=== PATIENT | male | born 1980 | race Caucasian/White ===

== ENCOUNTER 2017-09-06 12:35 | Inpatient (IN) | payer OTHER ==
[2017-09-06 13:36] VITALS: BMI 28.7
--- NOTE | 2017-09-06 17:32 | HP ---
Admission [facility] Chief Complaint: "I'm here because of my history of drug use and because I am mandated to by drug court." Patient is here for Rehab for Marijuana and Opiates. Allergies/Adverse Reactions: Allergies Allergy/AdvReac Type Severity Reaction Status Date / Time No Known Allergies Allergy Verified 09/06/17 17:15 History of Present Illness: Patient is a 36 YO male here for Rehab for Heroin and Marijuana. Patient had a Detox admission at [facility] in 2009. Patient is a client at [facility] (Daily Dose: 130 mg; Last Day medicated: today, 09/06/2017). Pending Verification. Longest Period of non-drug use in recent years: 2 years ( 2007 - 2009). Exam Limitations: No Limitations - Ebola screening Have you traveled outside of the country in the last 21 days: No Have you had contact with anyone from an Ebola affected area: No Have you been sick,other than usual withdrawal symptoms: No Do you have a fever: No - Review of Systems Constitutional: Loss of Appetite, Malaise EENT: reports: No Symptoms Reported Respiratory: reports: No Symptoms reported Cardiac: reports: No Symptoms Reported GI: reports: Constipated, Indigestion (Heartburn.), Abdominal cramping : reports: No Symptoms Reported Musculoskeletal: reports: No Symptoms Reported Integumentary: reports: No Symptoms Reported Neuro: reports: Tremors Endocrine: reports: No Symptoms Reported Hematology: reports: No Symptoms Reported Psychiatric: reports: No Sypmtoms Reported, Judgement Intact, Mood/Affect Appropiate, Orientated x3, Anxious Other Systems: Reviewed and Negative Patient History - Patient Medical History Hx Anemia: No Hx Asthma: No Hx Chronic Obstructive Pulmonary Disease (COPD): No Hx Cancer: No Hx Cardiac Disorders: No Hx Congestive Heart Failure: No Hx Hypertension: No Hx Hypercholesterolemia: No Hx Pacemaker: No HX Cerebrovascular Accident: No Hx Seizures: No Hx Dementia: No Hx Diabetes: No Hx Gastrointestinal Disorders: Yes (GERD, Takes Nexium.) Hx Liver Disease: No Hx Genitourinary Disorders: No Hx Sexually Transmitted Disorders: No Hx Renal Disease (ESRD): No Hx Thyroid Disease: No Hx Human Immunodeficiency Virus (HIV): No (Last Tested: 08/2017: NEGATIVE.) Hx Hepatitis C: No (Last Tested: 08/2017: NEGATIVE.) Hx Depression: No (Anxiety.) Hx Suicide Attempt: No (PAITENT DENIES CURRENT SI / HI.) Hx Bipolar Disorder: No Hx Schizophrenia: No Other Medical History: DENIES. - Patient Surgical History Past Surgical History: No Hx Neurologic Surgery: No Hx Cataract Extraction: No Hx Cardiac Surgery: No Hx Lung Surgery: No Hx Breast Surgery: No Hx Breast Biopsy: No Hx Abdominal Surgery: No Hx Appendectomy: No Hx Cholecystectomy: No Hx Genitourinary Surgery: No Hx Orthopedic Surgery: No Other Surgical History: DENIES. Anesthesia Reaction: No - PPD History Documented Results: Negative w/o proof Implanted On Prior R Admission?: No PPD to be Administered?: Yes - Reproductive History Patient is a Female of Child Bearing Age (11 -55 yrs old): No (PATIENT IS MALE.) - Smoking Cessation Smoking history: Former smoker Have you smoked in the past 12 months: No Cigars Per Day: 0 Hx Chewing Tobacco Use: No Initiated information on smoking cessation: No - Substance & Tx. History Hx Alcohol Use: No Substance Use Type: Heroin, Marijuana Hx Substance Use Treatment: Yes (Detox at [facility], 2010. MMTP Program at [facility].) - Substances Abused Heroin Route: Injection Frequency: 1-2 times per week Amount used: 3 Bags Age of first use: 27 Date of Last Use: 03/05/17 Marijuana/Hashish Route: Smoking Frequency: 1-2 times per week Amount used: 1 Gram. Age of first use: 18 Date of Last Use: 07/25/17 Family Disease History - Family Disease History Family History: Denies Admission Physical Exam S - Vital Signs Vital Signs: Vital Signs - 24 hr 09/06/17 13:34 Temperature 97.2 F L Pulse Rate 77 Respiratory 20 Rate Blood Pressure 147/111 - Physical General Appearance: Yes: No Apparent Distress, Nourished, Appropriately Dressed , Tremorous, Anxious HEENTM: Yes: Hearing grossly Normal, Normocephalic, Normal Voice, EMANUEL, Pharynx Normal Respiratory: Yes: Chest Non-Tender, Lungs Clear, No Respiratory Distress, No Accessory Muscle Use Neck: Yes: No masses,lesions,Nodules, Supple, Trachea in good position Breast: Yes: Breast Exam Deferred Cardiology: Yes: Regular Rhythm, Regular Rate, S1, S2 Abdominal: Yes: Normal Bowel Sounds, Non Tender, Flat, Soft Genitourinary: Yes: Within Normal Limits Back: Yes: Normal Inspection Musculoskeletal: Yes: full range of Motion, Gait Steady Extremities: Yes: Normal Capillary Refill, Normal Range of Motion, Non-Tender, Tremors Neurological: Yes: Fully Oriented, Alert, Normal Mood/Affect, Normal Response Integumentary: Yes: Normal Color, Dry, Warm Lymphatic: Yes: Within Normal Limits - Diagnostic (1) Uncomplicated opioid dependence Current Visit: Yes Status: Chronic (2) Cannabis dependence, uncomplicated Current Visit: Yes Status: Chronic (3) Methadone maintenance therapy patient Current Visit: Yes Status: Chronic (4) Nicotine dependence Current Visit: Yes Status: Chronic Qualifiers: Nicotine product type: cigarettes Substance use status: uncomplicated Qualified Code(s): F17.210 - Nicotine dependence, cigarettes, uncomplicated (5) GERD (gastroesophageal reflux disease) Current Visit: Yes Status: Chronic Qualifiers: Esophagitis presence: esophagitis presence not specified Qualified Code(s) : K21.9 - Gastro-esophageal reflux disease without esophagitis (6) Anxiety Current Visit: Yes Status: Chronic Cleared for Admission [facility] - Detox or Rehab Claeared for Rehab Admission: Yes [facility] Breath Alcohol Content Breath Alcohol Content: 0 Urine Drug Screen - Results Drug Screen Negative: No Urine Drug Screen Results: THC-Marijuana, MTD-Methadone Inpatient Rehab Admission - Initial Determination Are CD services needed?: Yes Free of communicable disease: Yes Not in need of hospitalization: Yes - Rehab Admission Criteria Previous failed treatment: Yes Comorbidities: Yes Patient is meeting Inpatient Rehab admission criteria:: Yes
[2017-09-06] MEDS ORDERED: MAGNESIUM CITRATE 300 ML BOTTLE PO PRN (17:57)
[2017-09-06] MEDS ORDERED: MAGNESIUM HYDROX 2400MG/30ML ORAL SUSPENSION 30 ML CUP PO PRN (17:57)
[2017-09-06] MEDS ORDERED: MENTHOL/PHENOL 1 EACH UD MM PRN (17:57)
[2017-09-06] MEDS ORDERED: ACETAMINOPHEN 325 MG TABLET (FP) PO PRN (17:57)
[2017-09-06] MEDS ORDERED: guaiFENesin/D-METHORPHAN HB 10 ML UNIT-DOSE CUPS PO PRN (17:57)
[2017-09-06] MEDS: MELATONIN 5 MG TABLETS PO PRN (21:11)
[2017-09-06] MEDS: PANTOPRAZOLE 20 MG TABLET (FP) PO SCH (21:11)
[2017-09-06] MEDS: THIAMINE HCL 100 MG TABLET (FP) PO SCH (21:15)
[2017-09-06] MEDS: OXYMETAZOLINE 0.05% NASAL SOLUTION 15 ML BOTTLE NS SCH (22:29)
[2017-09-06 23:12] LABS: URINE APPEARANCE CLEAR; URINE BILIRUBIN NEGATIVE (<2.0 mg/dL); URINE BLOOD NEGATIVE (NEGATIVE); URINE COLOR YELLOW; URINE GLUCOSE (UA) NEGATIVE (NEGATIVE); URINE KETONE NEGATIVE (NEGATIVE); URINE LEUK ESTERASE TRACE (NEGATIVE); URINE NITRITE NEGATIVE (NEGATIVE); URINE PROTEIN NEGATIVE (NEGATIVE); URINE UROBILINOGEN NEGATIVE mg/dL (0.2-1.0)
[2017-09-06 23:18] LABS: URINE MUCUS RARE
[2017-09-07] MEDS: P-EPHED 60MG/TRIPROLIDI 2.5MG TABLET PO PRN (06:59)
[2017-09-07] MEDS: OXYMETAZOLINE 0.05% NASAL SOLUTION 15 ML BOTTLE NS SCH ×2 (09:22→21:12)
[2017-09-07] MEDS: PRENATAL VITAMINS W/ FOLIC ACID TABLET (FP) PO SCH (09:22)
[2017-09-07] MEDS: PANTOPRAZOLE 20 MG TABLET (FP) PO SCH (09:22)
[2017-09-07] MEDS ORDERED: METHADONE HCL 10 MG TABLET PO SCH (10:45)
[2017-09-07] MEDS ORDERED: METHADONE 120 MG, METHADONE 10 MG PO ONE (11:15)
[2017-09-07 11:22] LABS: HEMATOCRIT 42.6 % (35.4-49); HEMOGLOBIN 14.3 GM/dL (11.7-16.9); MCHC 33.6 g/dl (32.0-35.9); MEAN CELL VOLUME 86.5 fl (80-96); MEAN PLT VOLUME 8.6 fl (7.5-11.1); PLATELET COUNT 275 K/MM3 (134-434); RBC 4.93 M/mm3 (4.00-5.60); WHITE BLOOD COUNT 8.1 K/mm3 (4.0-10.0)
[2017-09-07] MEDS ORDERED: METHADONE HCL 40 MG DISPERSABLE TABLET ONE (11:25)
[2017-09-07] MEDS ORDERED: METHADONE HCL 10 MG TABLET ONE (11:25)
[2017-09-07 11:32] LABS: ALBUMIN 3.8 g/dl (3.4-5.0); ALK PHOS 99 U/L (45-117); ANION GAP 7 (8-16); BILIRUBIN,TOTAL 0.2 mg/dL (0.2-1.0); BLOOD UREA NITROGEN 12 mg/dL (7-18); CALCIUM 9.2 mg/dL (8.5-10.1); CHLORIDE 103 mmol/L (98-107); CO2 27 mmol/L (21-32); CREATININE 0.8 mg/dL (0.7-1.3); GLUCOSE,RANDOM 83 mg/dL (74-106); POTASSIUM 4.2 mmol/L (3.5-5.1); SGOT/AST 25 U/L (15-37); SGPT/ALT 40 U/L (12-78); SODIUM 137 mmol/L (136-145); TOT PROT 7.3 g/dl (6.4-8.2)
--- NOTE | 2017-09-07 18:23 | EKG ---
Test Reason : Blood Pressure : / mmHG Vent. Rate : 067 BPM Atrial Rate : 067 BPM P-R Int : 174 ms QRS Dur : 092 ms QT Int : 420 ms P-R-T Axes : 044 063 033 degrees QTc Int : 443 ms NORMAL SINUS RHYTHM LEFT VENTRICULAR HYPERTROPHY NONSPECIFIC ST ABNORMALITY ABNORMAL ECG Confirmed by MD GRANT, CITLALI ([id number]) on 09/07/2017 6:23:18 PM Referred By: Confirmed By:CITLALI BURNS MD
[2017-09-07] MEDS: IBUPROFEN 400 MG TABLET (FP) PO PRN (20:09)
[2017-09-07] MEDS: MELATONIN 5 MG TABLETS PO PRN (21:12)
[2017-09-07] MEDS: THIAMINE HCL 100 MG TABLET (FP) PO SCH (21:12)
[2017-09-08] MEDS ORDERED: METHADONE HCL 10 MG TABLET ONE (06:02)
[2017-09-08] MEDS: METHADONE 120 MG, METHADONE 10 MG PO SCH (06:02)
[2017-09-08] MEDS ORDERED: METHADONE HCL 40 MG DISPERSABLE TABLET ONE (06:02)
[2017-09-08] MEDS: PRENATAL VITAMINS W/ FOLIC ACID TABLET (FP) PO SCH (09:37)
[2017-09-08] MEDS: PANTOPRAZOLE 20 MG TABLET (FP) PO SCH (09:37)
[2017-09-08] MEDS: OXYMETAZOLINE 0.05% NASAL SOLUTION 15 ML BOTTLE NS SCH ×2 (09:38→21:12)
[2017-09-08] MEDS: IBUPROFEN 400 MG TABLET (FP) PO PRN (11:25)
--- NOTE | 2017-09-08 15:52 | HP ---
Psychiatrist Admission - Data Date of interview: 09/08/17 Admission source: [facility] drug court Identifying data: This is the first [facility] admission for this 36 years old single male, unemployed, domiciled living wiyh his father Medical History: Significant for GERD. Patient attends [facility] MMTP and he is on methadone 130 mg/day. Psychiatric History: Denies history of previous psychiatric treatment. However reports seeing Ms Marks, a private psychologist on 08/15/17 and was diagnosed with General Anxiety Disorder.Apparently, Ms Marks gave patient the names of several psychiatrist to contact for medication evaluation and treatment as indicated. Patient told engineering writer sine he is mandated by drug court to attend inpatient rehab, he could not find a psychiatrist for that evaluation. Physical/Sexual Abuse/Trauma History: Denies history of emotional, physical or sexual abuse as well as DV relationship Additional Comment: Reports history of 6-7 previous arrests. Denies being on probation currently. However reports being sentenced to drug court Vital Signs: Vital Signs - 24 hr 09/08/17 09/08/17 09/08/17 00:30 03:30 07:02 Temperature 97.9 F Pulse Rate 63 Respiratory 18 18 18 Rate Blood Pressure 140/89 Allergies/Adverse Reactions: Allergies Allergy/AdvReac Type Severity Reaction Status Date / Time No Known Allergies Allergy Verified 09/06/17 17:15 Date of last physical exam: 09/06/17 Concur with the findings of this exam: Yes - Substance Abuse/Tx History Hx Alcohol Use: No Hx Substance Use: Yes Substance Use Type: Heroin (Started using heroin at age 27, consumes 3 bags 1-2 times weekly. Last used on 03/05/17), Marijuana (Started using marijuana at age 18, consumes one gram 1-2 times weekly) Hx Substance Use Treatment: Yes (one previous inpt detox @ [facility]. 3 inpt rehab @ [facility]) Mental Status Exam - Mental Status Exam Alert and Oriented to: Time, Place, Person Cognitive Function: Fair Patient Appearance: Well Groomed Mood: Anxious Affect: Appropriate Patient Behavior: Cooperative Speech Pattern: Clear Voice Loudness: Normal Thought Process: Intact, Goal Oriented Thought Disorder: Not Present Hallucinations: Denies Suicidal Ideation: Denies Homicidal Ideation: Denies Insight/Judgement: Poor Sleep: Well Appetite: Good Muscle strength/Tone: Normal Gait/Station: Normal Psychiatric Findings - Problem List ([place] 1, 2,3) (1) Cannabis dependence Current Visit: Yes Status: Acute (2) Opioid dependence on agonist therapy Current Visit: Yes Status: Chronic (3) Substance-induced anxiety disorder Current Visit: Yes Status: Acute (4) TEJA (generalized anxiety disorder) Current Visit: Yes Status: Ruled-out (5) GERD (gastroesophageal reflux disease) Current Visit: Yes Status: Chronic Qualifiers: Esophagitis presence: esophagitis presence not specified Qualified Code(s) : K21.9 - Gastro-esophageal reflux disease without esophagitis - Initial Treatment Plan Initial Treatment Plan: 1) Start Vistaril 50 mg po Q 4hrs prn for anxiety. 2) Monitor Progress
[2017-09-08] MEDS ORDERED: hydrOXYzine PAMOATE 50 MG CAPSULE (FP) PO PRN (16:13)
[2017-09-08] MEDS: THIAMINE HCL 100 MG TABLET (FP) PO SCH (21:12)
[2017-09-09] MEDS ORDERED: METHADONE HCL 40 MG DISPERSABLE TABLET ONE (03:32)
[2017-09-09] MEDS ORDERED: METHADONE HCL 10 MG TABLET ONE (03:32)
[2017-09-09] MEDS: METHADONE 120 MG, METHADONE 10 MG PO SCH (06:04)
[2017-09-09] MEDS: PANTOPRAZOLE 20 MG TABLET (FP) PO SCH (09:41)
[2017-09-09] MEDS: OXYMETAZOLINE 0.05% NASAL SOLUTION 15 ML BOTTLE NS SCH ×2 (09:41→21:07)
[2017-09-09] MEDS: PRENATAL VITAMINS W/ FOLIC ACID TABLET (FP) PO SCH (09:41)
[2017-09-09] MEDS: IBUPROFEN 400 MG TABLET (FP) PO PRN (10:50)
[2017-09-09] MEDS: THIAMINE HCL 100 MG TABLET (FP) PO SCH (21:07)
[2017-09-10] MEDS ORDERED: METHADONE HCL 10 MG TABLET ONE (03:04)
[2017-09-10] MEDS ORDERED: METHADONE HCL 40 MG DISPERSABLE TABLET ONE (03:04)
[2017-09-10] MEDS: METHADONE 120 MG, METHADONE 10 MG PO SCH (06:06)
[2017-09-10] MEDS: PRENATAL VITAMINS W/ FOLIC ACID TABLET (FP) PO SCH (09:48)
[2017-09-10] MEDS: PANTOPRAZOLE 20 MG TABLET (FP) PO SCH (09:48)
[2017-09-10] MEDS: OXYMETAZOLINE 0.05% NASAL SOLUTION 15 ML BOTTLE NS SCH (19:09)
[2017-09-10] MEDS: THIAMINE HCL 100 MG TABLET (FP) PO SCH (21:10)
[2017-09-11] MEDS ORDERED: METHADONE HCL 10 MG TABLET ONE (04:37)
[2017-09-11] MEDS ORDERED: METHADONE HCL 40 MG DISPERSABLE TABLET ONE (04:37)
[2017-09-11] MEDS: METHADONE 120 MG, METHADONE 10 MG PO SCH (06:09)
[2017-09-11] MEDS: OXYMETAZOLINE 0.05% NASAL SOLUTION 15 ML BOTTLE NS SCH ×2 (06:10→17:27)
[2017-09-11] MEDS: PRENATAL VITAMINS W/ FOLIC ACID TABLET (FP) PO SCH (09:44)
[2017-09-11] MEDS: PANTOPRAZOLE 20 MG TABLET (FP) PO SCH (09:44)
[2017-09-11] MEDS: IBUPROFEN 400 MG TABLET (FP) PO PRN (17:55)
[2017-09-11] MEDS: THIAMINE HCL 100 MG TABLET (FP) PO SCH (21:06)
[2017-09-12] MEDS ORDERED: METHADONE HCL 10 MG TABLET ONE (04:19)
[2017-09-12] MEDS ORDERED: METHADONE HCL 40 MG DISPERSABLE TABLET ONE (04:19)
[2017-09-12] MEDS: METHADONE 120 MG, METHADONE 10 MG PO SCH (06:03)
[2017-09-12] MEDS: OXYMETAZOLINE 0.05% NASAL SOLUTION 15 ML BOTTLE NS SCH ×2 (06:03→17:03)
[2017-09-12] MEDS: PANTOPRAZOLE 20 MG TABLET (FP) PO SCH (09:45)
[2017-09-12] MEDS: PRENATAL VITAMINS W/ FOLIC ACID TABLET (FP) PO SCH (09:46)
[2017-09-12] MEDS: THIAMINE HCL 100 MG TABLET (FP) PO SCH (22:33)
[2017-09-13] MEDS ORDERED: METHADONE HCL 40 MG DISPERSABLE TABLET ONE (04:12)
[2017-09-13] MEDS ORDERED: METHADONE HCL 10 MG TABLET ONE (04:12)
[2017-09-13] MEDS: OXYMETAZOLINE 0.05% NASAL SOLUTION 15 ML BOTTLE NS SCH ×2 (06:12→18:12)
[2017-09-13] MEDS: METHADONE 120 MG, METHADONE 10 MG PO SCH (06:12)
[2017-09-13] MEDS: PRENATAL VITAMINS W/ FOLIC ACID TABLET (FP) PO SCH (09:35)
[2017-09-13] MEDS: PANTOPRAZOLE 20 MG TABLET (FP) PO SCH (09:35)
[2017-09-13] MEDS: THIAMINE HCL 100 MG TABLET (FP) PO SCH (22:03)
[2017-09-14] MEDS ORDERED: METHADONE HCL 10 MG TABLET ONE (03:14)
[2017-09-14] MEDS ORDERED: METHADONE HCL 40 MG DISPERSABLE TABLET ONE (03:14)
[2017-09-14] MEDS: METHADONE 120 MG, METHADONE 10 MG PO SCH (06:13)
[2017-09-14] MEDS: OXYMETAZOLINE 0.05% NASAL SOLUTION 15 ML BOTTLE NS SCH ×2 (06:13→18:08)
[2017-09-14] MEDS: PRENATAL VITAMINS W/ FOLIC ACID TABLET (FP) PO SCH (09:28)
[2017-09-14] MEDS: PANTOPRAZOLE 20 MG TABLET (FP) PO SCH (09:28)
[2017-09-14] MEDS ORDERED: PT OWN MED DRAWER 7, Y5N ONE ×2 (18:08→21:12)
[2017-09-14] MEDS: THIAMINE HCL 100 MG TABLET (FP) PO SCH (21:10)
[2017-09-15] MEDS ORDERED: METHADONE HCL 10 MG TABLET ONE (02:46)
[2017-09-15] MEDS ORDERED: METHADONE HCL 40 MG DISPERSABLE TABLET ONE (02:47)
[2017-09-15] MEDS: OXYMETAZOLINE 0.05% NASAL SOLUTION 15 ML BOTTLE NS SCH ×2 (06:06→18:00)
[2017-09-15] MEDS: METHADONE 120 MG, METHADONE 10 MG PO SCH (06:06)
[2017-09-15] MEDS: PRENATAL VITAMINS W/ FOLIC ACID TABLET (FP) PO SCH (09:46)
[2017-09-15] MEDS: PANTOPRAZOLE 20 MG TABLET (FP) PO SCH (09:46)
[2017-09-15] MEDS: LOPERAMIDE HCL 2 MG CAPSULE PO PRN ×2 (12:39→19:58)
[2017-09-15] MEDS: P-EPHED 60MG/TRIPROLIDI 2.5MG TABLET PO PRN (15:17)
[2017-09-15] MEDS ORDERED: PT OWN MED DRAWER 7, Y5N ONE ×2 (19:22→22:28)
[2017-09-15] MEDS: THIAMINE HCL 100 MG TABLET (FP) PO SCH (21:38)
[2017-09-15] MEDS ORDERED: LOPERAMIDE HCL 2 MG CAPSULE PO ONE (22:00)
[2017-09-16] MEDS ORDERED: METHADONE HCL 40 MG DISPERSABLE TABLET ONE (04:20)
[2017-09-16] MEDS ORDERED: METHADONE HCL 10 MG TABLET ONE (04:20)
[2017-09-16] MEDS: OXYMETAZOLINE 0.05% NASAL SOLUTION 15 ML BOTTLE NS SCH ×2 (06:09→18:00)
[2017-09-16] MEDS: METHADONE 120 MG, METHADONE 10 MG PO SCH (06:10)
[2017-09-16] MEDS: LOPERAMIDE HCL 2 MG CAPSULE PO PRN (06:13)
[2017-09-16] MEDS ORDERED: PT OWN MED DRAWER 7, Y5N ONE ×2 (08:54→22:11)
[2017-09-16] MEDS: PANTOPRAZOLE 20 MG TABLET (FP) PO SCH (09:40)
[2017-09-16] MEDS: PRENATAL VITAMINS W/ FOLIC ACID TABLET (FP) PO SCH (09:40)
[2017-09-16] MEDS ORDERED: ONDANSETRON *ODT* 4 MG TABLET SL PRN (19:46)
--- NOTE | 2017-09-16 19:48 | PN ---
[facility] Progress Note Note: Patient c/o of frequent nausea. Vital Signs Temperature 97.5 F L 09/16/17 06:39 Pulse Rate 79 09/16/17 06:39 Respiratory Rate 18 09/16/17 06:39 Blood Pressure 124/94 09/16/17 06:39 O2 Sat by Pulse Oximetry (%) Laboratory Last Values WBC 8.1 K/mm3 (4.0-10.0) 09/07/17 08:00 RBC 4.93 M/mm3 (4.00-5.60) 09/07/17 08:00 Hgb 14.3 GM/dL (11.7-16.9) 09/07/17 08:00 Hct 42.6 % (35.4-49) 09/07/17 08:00 MCV 86.5 fl (80-96) 09/07/17 08:00 MCH 29.0 pg (25.7-33.7) 09/07/17 08:00 MCHC 33.6 g/dl (32.0-35.9) 09/07/17 08:00 RDW 14.0 % (11.9-15.9) 09/07/17 08:00 Plt Count 275 K/MM3 (134-434) 09/07/17 08:00 MPV 8.6 fl (7.5-11.1) 09/07/17 08:00 Sodium 137 mmol/L (136-145) 09/07/17 08:00 Potassium 4.2 mmol/L (3.5-5.1) 09/07/17 08:00 Chloride 103 mmol/L (98-107) 09/07/17 08:00 Carbon Dioxide 27 mmol/L (21-32) 09/07/17 08:00 Anion Gap 7 (8-16) L 09/07/17 08:00 BUN 12 mg/dL (7-18) 09/07/17 08:00 Creatinine 0.8 mg/dL (0.7-1.3) 09/07/17 08:00 Creat Clearance w eGFR > 60 (>60) 09/07/17 08:00 Random Glucose 83 mg/dL (74-106) 09/07/17 08:00 Calcium 9.2 mg/dL (8.5-10.1) 09/07/17 08:00 Total Bilirubin 0.2 mg/dL (0.2-1.0) 09/07/17 08:00 AST 25 U/L (15-37) 09/07/17 08:00 ALT 40 U/L (12-78) 09/07/17 08:00 Alkaline Phosphatase 99 U/L (45-117) 09/07/17 08:00 Total Protein 7.3 g/dl (6.4-8.2) 09/07/17 08:00 Albumin 3.8 g/dl (3.4-5.0) 09/07/17 08:00 Urine Color Yellow 09/06/17 18:51 Urine Appearance Clear 09/06/17 18:51 Urine pH 7.0 (5.0-8.0) 09/06/17 18:51 Ur Specific [place] 1.021 (1.001-1.035) 09/06/17 18:51 Urine Protein Negative (NEGATIVE) 09/06/17 18:51 Urine Glucose (UA) Negative (NEGATIVE) 09/06/17 18:51 Urine Ketones Negative (NEGATIVE) 09/06/17 18:51 Urine Blood Negative (NEGATIVE) 09/06/17 18:51 Urine Nitrite Negative (NEGATIVE) 09/06/17 18:51 Urine Bilirubin Negative (<2.0 mg/dL) 09/06/17 18:51 Urine Urobilinogen Negative mg/dL (0.2-1.0) 09/06/17 18:51 Ur Leukocyte Esterase Trace (NEGATIVE) 09/06/17 18:51 Urine WBC (Auto) 1 /hpf (3-5) 09/06/17 18:51 Urine RBC (Auto) <1 /hpf (0-3) 09/06/17 18:51 Urine Mucus Rare 09/06/17 18:51 RPR Titer Nonreactive (NONREACTIVE) 09/07/17 08:00 Plan: Zofran PRN Increase fluids Continue to monitor
[2017-09-16] MEDS: THIAMINE HCL 100 MG TABLET (FP) PO SCH (21:09)
[2017-09-17] MEDS ORDERED: METHADONE HCL 10 MG TABLET ONE (04:21)
[2017-09-17] MEDS ORDERED: METHADONE HCL 40 MG DISPERSABLE TABLET ONE (04:21)
[2017-09-17] MEDS: LOPERAMIDE HCL 2 MG CAPSULE PO PRN ×2 (06:12→12:57)
[2017-09-17] MEDS: METHADONE 120 MG, METHADONE 10 MG PO SCH (06:13)
[2017-09-17] MEDS: PANTOPRAZOLE 20 MG TABLET (FP) PO SCH (09:39)
[2017-09-17] MEDS: PRENATAL VITAMINS W/ FOLIC ACID TABLET (FP) PO SCH (09:39)
[2017-09-17] MEDS ORDERED: OXYMETAZOLINE 0.05% NASAL SOLUTION 15 ML BOTTLE NS SCH (10:00)
--- NOTE | 2017-09-17 15:01 | PN ---
S Progress Note Note: 36 yo male on methadone maintenance therapy. Reports asymptomatic elevated has been elevated which is related to his anxiety. Sweats Nausea, vomiting, diarrhea. Last BM today, reports currently going to bathroom every two hours. Denies abdominal pain, chest pain or SOB. Vital Signs Temperature 97.5 F L 09/17/17 06:58 Pulse Rate 81 09/17/17 06:58 Respiratory Rate 18 09/17/17 06:58 Blood Pressure 153/91 09/17/17 06:58 O2 Sat by Pulse Oximetry (%) Laboratory Last Values WBC 8.1 K/mm3 (4.0-10.0) 09/07/17 08:00 RBC 4.93 M/mm3 (4.00-5.60) 09/07/17 08:00 Hgb 14.3 GM/dL (11.7-16.9) 09/07/17 08:00 Hct 42.6 % (35.4-49) 09/07/17 08:00 MCV 86.5 fl (80-96) 09/07/17 08:00 MCH 29.0 pg (25.7-33.7) 09/07/17 08:00 MCHC 33.6 g/dl (32.0-35.9) 09/07/17 08:00 RDW 14.0 % (11.9-15.9) 09/07/17 08:00 Plt Count 275 K/MM3 (134-434) 09/07/17 08:00 MPV 8.6 fl (7.5-11.1) 09/07/17 08:00 Sodium 137 mmol/L (136-145) 09/07/17 08:00 Potassium 4.2 mmol/L (3.5-5.1) 09/07/17 08:00 Chloride 103 mmol/L (98-107) 09/07/17 08:00 Carbon Dioxide 27 mmol/L (21-32) 09/07/17 08:00 Anion Gap 7 (8-16) L 09/07/17 08:00 BUN 12 mg/dL (7-18) 09/07/17 08:00 Creatinine 0.8 mg/dL (0.7-1.3) 09/07/17 08:00 Creat Clearance w eGFR > 60 (>60) 09/07/17 08:00 Random Glucose 83 mg/dL (74-106) 09/07/17 08:00 Calcium 9.2 mg/dL (8.5-10.1) 09/07/17 08:00 Total Bilirubin 0.2 mg/dL (0.2-1.0) 09/07/17 08:00 AST 25 U/L (15-37) 09/07/17 08:00 ALT 40 U/L (12-78) 09/07/17 08:00 Alkaline Phosphatase 99 U/L (45-117) 09/07/17 08:00 Total Protein 7.3 g/dl (6.4-8.2) 09/07/17 08:00 Albumin 3.8 g/dl (3.4-5.0) 09/07/17 08:00 Urine Color Yellow 09/06/17 18:51 Urine Appearance Clear 09/06/17 18:51 Urine pH 7.0 (5.0-8.0) 09/06/17 18:51 Ur Specific [place] 1.021 (1.001-1.035) 09/06/17 18:51 Urine Protein Negative (NEGATIVE) 09/06/17 18:51 Urine Glucose (UA) Negative (NEGATIVE) 09/06/17 18:51 Urine Ketones Negative (NEGATIVE) 09/06/17 18:51 Urine Blood Negative (NEGATIVE) 09/06/17 18:51 Urine Nitrite Negative (NEGATIVE) 09/06/17 18:51 Urine Bilirubin Negative (<2.0 mg/dL) 09/06/17 18:51 Urine Urobilinogen Negative mg/dL (0.2-1.0) 09/06/17 18:51 Ur Leukocyte Esterase Trace (NEGATIVE) 09/06/17 18:51 Urine WBC (Auto) 1 /hpf (3-5) 09/06/17 18:51 Urine RBC (Auto) <1 /hpf (0-3) 09/06/17 18:51 Urine Mucus Rare 09/06/17 18:51 RPR Titer Nonreactive (NONREACTIVE) 09/07/17 08:00 A/P Patient AOx3, anxious Normal HR and Rhythm Lungs clear throughout, no adventitious breath sounds BS x 4, no guarding, non-distended Plan: Increase fluids gingerale lomotil once dose continue to monitor
[2017-09-17] MEDS ORDERED: DIPHENOXYLATE 2.5/ATROPINE.025 1 COMBO TABLET PO ONE (15:45)
[2017-09-17] MEDS: THIAMINE HCL 100 MG TABLET (FP) PO SCH (21:11)
[2017-09-17] MEDS ORDERED: PT OWN MED DRAWER 7, Y5N ONE (22:00)
[2017-09-18] MEDS ORDERED: METHADONE HCL 40 MG DISPERSABLE TABLET ONE (04:13)
[2017-09-18] MEDS ORDERED: METHADONE HCL 10 MG TABLET ONE (04:13)
[2017-09-18] MEDS: METHADONE 120 MG, METHADONE 10 MG PO SCH (05:59)
[2017-09-18] MEDS: OXYMETAZOLINE 0.05% NASAL SOLUTION 15 ML BOTTLE NS PRN ×2 (06:02→17:48)
--- NOTE | 2017-09-18 07:48 | PN ---
Psychiatric Progress Note Vital Signs: Vital Signs Period Temp Pulse Resp BP Sys/Holt Pulse Ox Last 24 Hr 97.3 F 75 18-18 137/87 Date of Session: 09/18/17 Chief Complaint:: Discharge Note HPI: Patient addressing Cannabis Dependence comorbid with Opioid Dependence on Agonist Therapy, Substance-Induced Anxiety Disorder ROS: GERD Current Medications: Active Medications Generic Name Dose Route Start Last Admin Trade Name Freq PRN Reason Stop Dose Admin Acetaminophen 650 mg 09/06/17 17:57 Tylenol - PO Q4H PRN FEVER Al Hydroxide/Mg Hydroxide 30 ml 09/06/17 17:57 Mylanta Oral Suspension - PO Q6H PRN DYSPEPSIA Eucalyptus/Menthol/Phenol/Sorbitol 1 each 09/06/17 17:57 Cepastat Lozenge - MM Q4H PRN SORE THROAT Guaifenesin 10 ml 09/06/17 17:57 Robitussin Dm - PO Q6H PRN COUGH Hydroxyzine Pamoate 50 mg 09/08/17 16:13 Vistaril - PO Q4H PRN ANXIETY Ibuprofen 400 mg 09/06/17 17:57 09/11/17 17:55 Motrin - PO 400 mg Q6H PRN Administration Pain level 4-6 Loperamide HCl 4 mg 09/06/17 17:57 09/17/17 12:57 Imodium - PO 4 mg Q6H PRN Administration DIARRHEA Magnesium Citrate 300 ml 09/06/17 17:57 Citroma - PO Q48H PRN CONSTIPATION Magnesium Hydroxide 30 ml 09/06/17 17:57 Milk Of Magnesia - PO DAILY PRN CONSTIPATION Melatonin 5 mg 09/06/17 22:00 09/07/17 21:12 Melatonin PO 5 mg HS PRN Administration INSOMNIA Methadone HCl 120 mg/ 130 mg 09/13/17 06:00 09/18/17 05:59 Methadone HCl 10 mg PO 09/19/17 05:59 130 mg DAILY@0600 RAVEN Administration Ondansetron HCl 8 mg 09/16/17 19:46 09/16/17 20:23 Zofran Odt - SL 8 mg Q8H PRN Administration NAUSEA AND/OR VOMITING Oxymetazoline HCl 2 spray 09/17/17 03:05 09/18/17 06:02 Afrin - NS 2 sprays BID PRN Administration NASAL CONGESTION Pantoprazole Sodium 20 mg 09/06/17 18:15 09/17/17 09:39 Protonix - PO 20 mg DAILY RAVEN Administration Multivit/Folic Acid/Iron 1 tab 09/07/17 10:00 09/17/17 09:39 Vitamins (Sjr) - PO Not Given DAILY RAVEN Pseudoephedrine/Triprolidine 1 combo 09/06/17 17:57 09/15/17 15:17 Actifed - PO 1 combo TID PRN Administration NASAL CONGESTION Thiamine HCl 100 mg 09/06/17 22:00 09/17/17 21:11 Vitamin B1 - PO Not Given HS RAVEN Current Side Effect: No Lab tests ordered: Yes Lab tests reviewed: Yes Provider note:: Patient will complete this program on 09/19/17. He has met his treatment goals and will continue to address his issues in outpatient treatment at [facility]. He responded well to Hydroxyzine Pamoate 50 mg po Q 4hrs prn for anxiety. He is stable for discharge on 09/19/17 Total face to face time:: 35 Mental Status Exam - Mental Status Exam Alert and Oriented to: Time, Place, Person Cognitive Function: Fair Patient Appearance: Well Groomed Mood: Hopeful, Euthymic Affect: Appropriate Patient Behavior: Cooperative Speech Pattern: Clear Voice Loudness: Normal Thought Process: Intact, Goal Oriented Hallucinations: Denies Suicidal Ideation: Denies Homicidal Ideation: Denies Insight/Judgement: Fair Sleep: Fair Appetite: Good Muscle strength/Tone: Normal Gait/Station: Normal Psychiatric Treatment Plan - Problem List (1) Cannabis dependence Current Visit: Yes (2) Opioid dependence on agonist therapy Current Visit: Yes (3) Substance-induced anxiety disorder Current Visit: Yes (4) TEJA (generalized anxiety disorder) Current Visit: Yes (5) GERD (gastroesophageal reflux disease) Current Visit: Yes Qualifiers: Esophagitis presence: esophagitis presence not specified Qualified Code(s) : K21.9 - Gastro-esophageal reflux disease without esophagitis Initial treatment plan: Patient will be discharged tomorrow and referred to [facility] for outpatient treatment
[2017-09-18] MEDS: PANTOPRAZOLE 20 MG TABLET (FP) PO SCH (09:46)
[2017-09-18] MEDS: PRENATAL VITAMINS W/ FOLIC ACID TABLET (FP) PO SCH (09:47)
[2017-09-18] MEDS ORDERED: PT OWN MED DRAWER 7, Y5N ONE (17:48)
[2017-09-18] MEDS: MAG HYDROX/AL HYDROX/SIMETH 30 ML UNIT-DOSE CUP PO PRN (21:29)
[2017-09-18] MEDS: THIAMINE HCL 100 MG TABLET (FP) PO SCH (21:30)
[2017-09-19] MEDS ORDERED: METHADONE HCL 10 MG TABLET PO SCH (06:15)
[2017-09-19] MEDS ORDERED: METHADONE HCL 10 MG TABLET ONE (06:22)
[2017-09-19] MEDS ORDERED: METHADONE HCL 40 MG DISPERSABLE TABLET ONE (06:22)
[2017-09-19] MEDS ORDERED: PT OWN MED DRAWER 7, Y5N ONE ×3 (06:23→21:13)
[2017-09-19] MEDS: OXYMETAZOLINE 0.05% NASAL SOLUTION 15 ML BOTTLE NS PRN ×2 (06:23→21:14)
[2017-09-19] MEDS: METHADONE 120 MG, METHADONE 10 MG PO SCH (06:23)
[2017-09-19] MEDS: PANTOPRAZOLE 20 MG TABLET (FP) PO SCH (09:34)
[2017-09-19] MEDS: PRENATAL VITAMINS W/ FOLIC ACID TABLET (FP) PO SCH (09:34)
[2017-09-19] MEDS: MAG HYDROX/AL HYDROX/SIMETH 30 ML UNIT-DOSE CUP PO PRN ×2 (12:55→21:13)
[2017-09-19] MEDS: THIAMINE HCL 100 MG TABLET (FP) PO SCH (21:14)
[2017-09-20] MEDS ORDERED: METHADONE HCL 10 MG TABLET ONE (04:04)
[2017-09-20] MEDS ORDERED: METHADONE HCL 40 MG DISPERSABLE TABLET ONE (04:05)
[2017-09-20] MEDS: METHADONE 120 MG, METHADONE 10 MG PO SCH (06:07)
[2017-09-20] MEDS: OXYMETAZOLINE 0.05% NASAL SOLUTION 15 ML BOTTLE NS PRN ×2 (06:11→19:37)
[2017-09-20] MEDS: PRENATAL VITAMINS W/ FOLIC ACID TABLET (FP) PO SCH (09:46)
[2017-09-20] MEDS: PANTOPRAZOLE 20 MG TABLET (FP) PO SCH (09:46)
[2017-09-20] MEDS: THIAMINE HCL 100 MG TABLET (FP) PO SCH (21:14)
[2017-09-21] MEDS ORDERED: METHADONE HCL 10 MG TABLET ONE (03:54)
[2017-09-21] MEDS ORDERED: METHADONE HCL 40 MG DISPERSABLE TABLET ONE (03:55)
[2017-09-21] MEDS: METHADONE 120 MG, METHADONE 10 MG PO SCH (06:26)
[2017-09-21] MEDS: OXYMETAZOLINE 0.05% NASAL SOLUTION 15 ML BOTTLE NS PRN ×2 (06:28→19:31)
[2017-09-21] MEDS: PANTOPRAZOLE 20 MG TABLET (FP) PO SCH (09:33)
[2017-09-21] MEDS: PRENATAL VITAMINS W/ FOLIC ACID TABLET (FP) PO SCH (09:33)
[2017-09-21] MEDS: THIAMINE HCL 100 MG TABLET (FP) PO SCH (22:11)
[2017-09-22] MEDS ORDERED: METHADONE HCL 40 MG DISPERSABLE TABLET ONE (04:06)
[2017-09-22] MEDS ORDERED: METHADONE HCL 10 MG TABLET ONE (04:06)
[2017-09-22] MEDS: METHADONE 120 MG, METHADONE 10 MG PO SCH (06:20)
[2017-09-22] MEDS: OXYMETAZOLINE 0.05% NASAL SOLUTION 15 ML BOTTLE NS PRN (07:33)
[2017-09-22] MEDS: PRENATAL VITAMINS W/ FOLIC ACID TABLET (FP) PO SCH (10:29)
[2017-09-22] MEDS: PANTOPRAZOLE 20 MG TABLET (FP) PO SCH (10:29)
[2017-09-22] MEDS: THIAMINE HCL 100 MG TABLET (FP) PO SCH (22:01)
[2017-09-22] MEDS ORDERED: PT OWN MED DRAWER 7, Y5N ONE ×2 (22:26→23:53)
[2017-09-23] MEDS ORDERED: METHADONE HCL 40 MG DISPERSABLE TABLET ONE (03:05)
[2017-09-23] MEDS ORDERED: METHADONE HCL 10 MG TABLET ONE (03:05)
[2017-09-23] MEDS: METHADONE 120 MG, METHADONE 10 MG PO SCH (06:12)
[2017-09-23] MEDS: PANTOPRAZOLE 20 MG TABLET (FP) PO SCH (09:41)
[2017-09-23] MEDS: PRENATAL VITAMINS W/ FOLIC ACID TABLET (FP) PO SCH (09:41)
[2017-09-23] MEDS ORDERED: PT OWN MED DRAWER 7, Y5N ONE (09:42)
[2017-09-23] MEDS: OXYMETAZOLINE 0.05% NASAL SOLUTION 15 ML BOTTLE NS PRN ×2 (09:42→21:35)
[2017-09-23] MEDS: THIAMINE HCL 100 MG TABLET (FP) PO SCH (21:35)
[2017-09-24] MEDS ORDERED: METHADONE HCL 10 MG TABLET ONE (05:02)
[2017-09-24] MEDS ORDERED: METHADONE HCL 40 MG DISPERSABLE TABLET ONE (05:02)
[2017-09-24] MEDS: METHADONE 120 MG, METHADONE 10 MG PO SCH (06:11)
[2017-09-24] MEDS: PRENATAL VITAMINS W/ FOLIC ACID TABLET (FP) PO SCH (09:41)
[2017-09-24] MEDS: OXYMETAZOLINE 0.05% NASAL SOLUTION 15 ML BOTTLE NS PRN ×2 (09:41→21:08)
[2017-09-24] MEDS: PANTOPRAZOLE 20 MG TABLET (FP) PO SCH (09:41)
[2017-09-24] MEDS: MAG HYDROX/AL HYDROX/SIMETH 30 ML UNIT-DOSE CUP PO PRN (17:43)
[2017-09-24] MEDS ORDERED: PT OWN MED DRAWER 7, Y5N ONE (21:08)
[2017-09-24] MEDS: THIAMINE HCL 100 MG TABLET (FP) PO SCH (22:07)
[2017-09-25] MEDS ORDERED: METHADONE HCL 10 MG TABLET ONE (05:37)
[2017-09-25] MEDS ORDERED: METHADONE HCL 40 MG DISPERSABLE TABLET ONE (05:38)
[2017-09-25] MEDS: METHADONE 120 MG, METHADONE 10 MG PO SCH (06:16)
[2017-09-25] MEDS: PANTOPRAZOLE 20 MG TABLET (FP) PO SCH (09:38)
[2017-09-25] MEDS: OXYMETAZOLINE 0.05% NASAL SOLUTION 15 ML BOTTLE NS PRN ×2 (09:38→21:10)
[2017-09-25] MEDS ORDERED: PT OWN MED DRAWER 7, Y5N ONE (09:38)
[2017-09-25] MEDS: PRENATAL VITAMINS W/ FOLIC ACID TABLET (FP) PO SCH (09:38)
[2017-09-25] MEDS: THIAMINE HCL 100 MG TABLET (FP) PO SCH (21:10)
[2017-09-26] MEDS ORDERED: METHADONE HCL 10 MG TABLET ONE (04:06)
[2017-09-26] MEDS ORDERED: METHADONE HCL 40 MG DISPERSABLE TABLET ONE (04:07)
[2017-09-26] MEDS: OXYMETAZOLINE 0.05% NASAL SOLUTION 15 ML BOTTLE NS PRN ×2 (06:34→21:12)
[2017-09-26] MEDS: METHADONE 120 MG, METHADONE 10 MG PO SCH (06:35)
[2017-09-26] MEDS: PANTOPRAZOLE 20 MG TABLET (FP) PO SCH (09:32)
[2017-09-26] MEDS: PRENATAL VITAMINS W/ FOLIC ACID TABLET (FP) PO SCH (09:32)
[2017-09-26] MEDS: THIAMINE HCL 100 MG TABLET (FP) PO SCH (22:35)
[2017-09-27] MEDS ORDERED: METHADONE HCL 10 MG TABLET ONE (03:59)
[2017-09-27] MEDS ORDERED: METHADONE HCL 40 MG DISPERSABLE TABLET ONE (03:59)
[2017-09-27] MEDS: METHADONE 120 MG, METHADONE 10 MG PO SCH (06:14)
[2017-09-27] MEDS: OXYMETAZOLINE 0.05% NASAL SOLUTION 15 ML BOTTLE NS PRN ×2 (09:43→19:58)
[2017-09-27] MEDS: PANTOPRAZOLE 20 MG TABLET (FP) PO SCH (09:43)
[2017-09-27] MEDS: PRENATAL VITAMINS W/ FOLIC ACID TABLET (FP) PO SCH (09:44)
[2017-09-27] MEDS: THIAMINE HCL 100 MG TABLET (FP) PO SCH (22:03)
[2017-09-28] MEDS ORDERED: METHADONE HCL 10 MG TABLET ONE (03:13)
[2017-09-28] MEDS ORDERED: METHADONE HCL 40 MG DISPERSABLE TABLET ONE (03:13)
[2017-09-28] MEDS: METHADONE 120 MG, METHADONE 10 MG PO SCH (06:04)
[2017-09-28] MEDS: OXYMETAZOLINE 0.05% NASAL SOLUTION 15 ML BOTTLE NS PRN ×2 (08:17→21:17)
[2017-09-28] MEDS: PRENATAL VITAMINS W/ FOLIC ACID TABLET (FP) PO SCH (09:19)
[2017-09-28] MEDS: PANTOPRAZOLE 20 MG TABLET (FP) PO SCH (09:19)
[2017-09-28] MEDS: THIAMINE HCL 100 MG TABLET (FP) PO SCH (21:16)
--- NOTE | 2017-09-28 23:14 | PN ---
[facility] Progress Note Note: ASKED TO SEE PT FOR A "STUBBED TOE". CLIENT STATES HE HIT HIS LEFT FITH TOE AGAINST THE FOOT OF THE TABLE. STATES "IT HURT LIKE HELL" BUT IT HAS SINCE RESOLVED. REPORTS SUSTAINED A CUT TO THE TOE AND BLEEDING. DENIES PAIN, A/O X 3 NAD AMBULATING ON UNIT W/O DIFFICULTY L FOOT TOE NOTED WITH SOME DRY BLOOD AND SKIN TEAR; NO DISCOLORATION OR SWELLING NOTED FROM W/ O LIMITATION A- LEFT FIFTH TOE TRAUMA W/ SKIN TEAR P- APPLY BACITRACIN DAILY AND COVER WITH BANDAGE MONITOR FOR S/SX OF INFECTION ICE PACK PRN FOR DELAYED SWELLING IF NEEDED MOTRIN/TYLENOL ORDERED IF NEEDED
[2017-09-28] MEDS: BACITRACIN 0.9 GM PACKET TP SCH (23:51)
[2017-09-29] MEDS ORDERED: METHADONE HCL 10 MG TABLET ONE (03:12)
[2017-09-29] MEDS ORDERED: METHADONE HCL 40 MG DISPERSABLE TABLET ONE (03:13)
[2017-09-29] MEDS: METHADONE 120 MG, METHADONE 10 MG PO SCH (06:06)
[2017-09-29] MEDS: OXYMETAZOLINE 0.05% NASAL SOLUTION 15 ML BOTTLE NS PRN ×2 (06:43→21:28)
[2017-09-29] MEDS ORDERED: PT OWN MED DRAWER 7, Y5N ONE (06:44)
[2017-09-29] MEDS: PRENATAL VITAMINS W/ FOLIC ACID TABLET (FP) PO SCH (09:55)
[2017-09-29] MEDS: BACITRACIN 0.9 GM PACKET TP SCH (09:55)
[2017-09-29] MEDS: PANTOPRAZOLE 20 MG TABLET (FP) PO SCH (09:55)
[2017-09-29] MEDS: THIAMINE HCL 100 MG TABLET (FP) PO SCH (21:27)
[2017-09-30] MEDS ORDERED: METHADONE HCL 40 MG DISPERSABLE TABLET ONE (04:13)
[2017-09-30] MEDS ORDERED: METHADONE HCL 10 MG TABLET ONE (04:13)
[2017-09-30] MEDS: METHADONE 120 MG, METHADONE 10 MG PO SCH (06:18)
[2017-09-30] MEDS: PANTOPRAZOLE 20 MG TABLET (FP) PO SCH (09:37)
[2017-09-30] MEDS: OXYMETAZOLINE 0.05% NASAL SOLUTION 15 ML BOTTLE NS PRN ×2 (09:37→21:06)
[2017-09-30] MEDS: PRENATAL VITAMINS W/ FOLIC ACID TABLET (FP) PO SCH (09:38)
[2017-09-30] MEDS ORDERED: PT OWN MED DRAWER 7, Y5N ONE ×2 (09:38→20:10)
[2017-09-30] MEDS: BACITRACIN 0.9 GM PACKET TP SCH (09:38)
[2017-09-30] MEDS: THIAMINE HCL 100 MG TABLET (FP) PO SCH (21:06)
[2017-10-01] MEDS ORDERED: METHADONE HCL 10 MG TABLET ONE (04:06)
[2017-10-01] MEDS ORDERED: METHADONE HCL 40 MG DISPERSABLE TABLET ONE (04:06)
[2017-10-01] MEDS: METHADONE 120 MG, METHADONE 10 MG PO SCH (06:37)
[2017-10-01] MEDS: OXYMETAZOLINE 0.05% NASAL SOLUTION 15 ML BOTTLE NS PRN ×2 (06:37→19:57)
[2017-10-01] MEDS: PANTOPRAZOLE 20 MG TABLET (FP) PO SCH (09:30)
[2017-10-01] MEDS: PRENATAL VITAMINS W/ FOLIC ACID TABLET (FP) PO SCH (09:30)
[2017-10-01] MEDS: BACITRACIN 0.9 GM PACKET TP SCH (09:30)
[2017-10-01] MEDS ORDERED: PT OWN MED DRAWER 7, Y5N ONE (19:56)
[2017-10-01] MEDS: THIAMINE HCL 100 MG TABLET (FP) PO SCH (21:09)
[2017-10-02] MEDS ORDERED: METHADONE HCL 40 MG DISPERSABLE TABLET ONE (04:58)
[2017-10-02] MEDS ORDERED: METHADONE HCL 10 MG TABLET ONE (04:58)
[2017-10-02] MEDS: METHADONE 120 MG, METHADONE 10 MG PO SCH (06:12)
[2017-10-02] MEDS: OXYMETAZOLINE 0.05% NASAL SOLUTION 15 ML BOTTLE NS PRN ×2 (07:02→21:43)
[2017-10-02] MEDS: PRENATAL VITAMINS W/ FOLIC ACID TABLET (FP) PO SCH (09:35)
[2017-10-02] MEDS: PANTOPRAZOLE 20 MG TABLET (FP) PO SCH (09:35)
[2017-10-02] MEDS: BACITRACIN 0.9 GM PACKET TP SCH (09:35)
[2017-10-02] MEDS: THIAMINE HCL 100 MG TABLET (FP) PO SCH (21:43)
[2017-10-03] MEDS ORDERED: METHADONE HCL 10 MG TABLET ONE (03:19)
[2017-10-03] MEDS ORDERED: METHADONE HCL 40 MG DISPERSABLE TABLET ONE (03:19)
[2017-10-03] MEDS: METHADONE 120 MG, METHADONE 10 MG PO SCH (06:10)
[2017-10-03] MEDS ORDERED: PT OWN MED DRAWER 7, Y5N ONE (06:13)
[2017-10-03] MEDS: OXYMETAZOLINE 0.05% NASAL SOLUTION 15 ML BOTTLE NS PRN ×2 (06:13→21:12)
[2017-10-03] MEDS: PRENATAL VITAMINS W/ FOLIC ACID TABLET (FP) PO SCH (09:33)
[2017-10-03] MEDS: PANTOPRAZOLE 20 MG TABLET (FP) PO SCH (09:33)
[2017-10-03] MEDS: BACITRACIN 0.9 GM PACKET TP SCH (09:33)
--- NOTE | 2017-10-03 10:10 | PN ---
Psychiatric Progress Note Vital Signs: Vital Signs Period Temp Pulse Resp BP Sys/Holt Pulse Ox Last 24 Hr 97.4 F 74 18-18 152/99 Date of Session: 10/03/17 Chief Complaint:: Discharge Note HPI: Patient addressing Cannabis Dependence comorbid with Opioid Dependence on Agonist Therapy, Substance-Induced Anxiety Disorder ROS: GERD Current Medications: Active Medications Generic Name Dose Route Start Last Admin Trade Name Freq PRN Reason Stop Dose Admin Acetaminophen 650 mg 09/06/17 17:57 Tylenol - PO Q4H PRN FEVER Al Hydroxide/Mg Hydroxide 30 ml 09/06/17 17:57 09/24/17 17:43 Mylanta Oral Suspension - PO 30 ml Q6H PRN Administration DYSPEPSIA Bacitracin 0.9 gm 09/28/17 23:45 10/03/17 09:33 Bacitracin - TP 10/04/17 23:44 Not Given DAILY RAVEN Eucalyptus/Menthol/Phenol/Sorbitol 1 each 09/06/17 17:57 Cepastat Lozenge - MM Q4H PRN SORE THROAT Guaifenesin 10 ml 09/06/17 17:57 Robitussin Dm - PO Q6H PRN COUGH Hydroxyzine Pamoate 50 mg 09/08/17 16:13 Vistaril - PO Q4H PRN ANXIETY Ibuprofen 400 mg 09/06/17 17:57 09/11/17 17:55 Motrin - PO 400 mg Q6H PRN Administration Pain level 4-6 Loperamide HCl 4 mg 09/06/17 17:57 09/17/17 12:57 Imodium - PO 4 mg Q6H PRN Administration DIARRHEA Magnesium Citrate 300 ml 09/06/17 17:57 Citroma - PO Q48H PRN CONSTIPATION Magnesium Hydroxide 30 ml 09/06/17 17:57 Milk Of Magnesia - PO DAILY PRN CONSTIPATION Melatonin 5 mg 09/06/17 22:00 09/07/17 21:12 Melatonin PO 5 mg HS PRN Administration INSOMNIA Methadone HCl 120 mg/ 130 mg 10/01/17 06:00 10/03/17 06:10 Methadone HCl 10 mg PO 10/07/17 05:59 130 mg DAILY@0600 RAVEN Administration Ondansetron HCl 8 mg 09/16/17 19:46 09/16/17 20:23 Zofran Odt - SL 8 mg Q8H PRN Administration NAUSEA AND/OR VOMITING Oxymetazoline HCl 2 spray 09/17/17 03:05 10/03/17 06:13 Afrin - NS 2 sprays BID PRN Administration NASAL CONGESTION Pantoprazole Sodium 20 mg 09/06/17 18:15 10/03/17 09:33 Protonix - PO 20 mg DAILY RAVEN Administration Multivit/Folic Acid/Iron 1 tab 09/07/17 10:00 10/03/17 09:33 Vitamins (Sjr) - PO Not Given DAILY RAVEN Pseudoephedrine/Triprolidine 1 combo 09/06/17 17:57 09/15/17 15:17 Actifed - PO 1 combo TID PRN Administration NASAL CONGESTION Thiamine HCl 100 mg 09/06/17 22:00 10/02/17 21:43 Vitamin B1 - PO Not Given HS RAVEN Current Side Effect: No Lab tests ordered: Yes Lab tests reviewed: Yes Provider note:: Patient will complete this program on 10/04/17. He has met his treatment goals and will continue to address his issues in outpatient treatment at [facility]. Told blurb writer that from his participation in this program, he got a reeducation on the importance of making metings. He responded well to Hydroxyzine Pamoate 50 mg po Q 4hrs prn for anxiety. He is stable for discharge on 10/04/17 Total face to face time:: 35 Mental Status Exam - Mental Status Exam Alert and Oriented to: Time, Place, Person Cognitive Function: Fair Patient Appearance: Well Groomed Mood: Hopeful, Euthymic Affect: Appropriate Patient Behavior: Cooperative Speech Pattern: Clear Voice Loudness: Normal Thought Process: Intact, Goal Oriented Thought Disorder: Not Present Hallucinations: Denies Suicidal Ideation: Denies Homicidal Ideation: Denies Insight/Judgement: Fair Sleep: Well Appetite: Good Muscle strength/Tone: Normal Gait/Station: Normal Psychiatric Treatment Plan - Problem List (1) Cannabis dependence Current Visit: Yes (2) Opioid dependence on agonist therapy Current Visit: Yes (3) Substance-induced anxiety disorder Current Visit: Yes (4) TEJA (generalized anxiety disorder) Current Visit: Yes (5) GERD (gastroesophageal reflux disease) Current Visit: Yes Qualifiers: Esophagitis presence: esophagitis presence not specified Qualified Code(s) : K21.9 - Gastro-esophageal reflux disease without esophagitis Initial treatment plan: Patient will be discharged tomorrow and referred to [facility] for outpatient treatment
[2017-10-03] MEDS: THIAMINE HCL 100 MG TABLET (FP) PO SCH (21:12)
[2017-10-04] MEDS ORDERED: METHADONE HCL 10 MG TABLET ONE (03:07)
[2017-10-04] MEDS ORDERED: METHADONE HCL 40 MG DISPERSABLE TABLET ONE (03:07)
[2017-10-04] MEDS: METHADONE 120 MG, METHADONE 10 MG PO SCH (06:07)
[2017-10-04 06:51] VITALS: BP 141/98; PULSE 98; TEMP 97.8
== END 2017-10-04 07:02 | disposition home or self-care (01) | DRG 772 ==
LOC: YASAS 12:35 → Y3W 17:17
PROVIDERS: ADMIT Psychiatry & Neurology Psychiatry; ATTEND Psychiatry & Neurology Psychiatry
PROC: HZ42ZZZ Group Counseling for Substance Abuse Treatment, Cognitive-Behavioral (ICD-10-PCS; principal; 2017-09-06)
DX: F11.20 Opioid dependence, uncomplicated (principal); F12.20 Cannabis dependence, uncomplicated; F41.1 Generalized anxiety disorder; F19.280 Other psychoactive substance dependence with psychoactive substance-induced anxiety disorder; K21.9 Gastro-esophageal reflux disease without esophagitis
CPT/HCPCS: 36415; 80053; 81003; 81015; 85027; 86593; 93005; 93010; Q0162

== ENCOUNTER 2019-05-28 14:42 | Emergency (ER) | payer OTHER ==
[2019-05-28 14:47] VITALS: TEMP 98.4; BMI 32.3
--- NOTE | 2019-05-28 15:32 | PDOC ---
Attending Attestation - Resident Resident Name: Scar Starr - HPI HPI: 05/31/19 19:58 Pt presents to the ED complaining of the acute onset of anxiety and palpitations. Seen in urgent care, where he was told to report to the ED for EKG and further treatment. Patient has a long standing history of generalized anxiety disorder and states that these symptoms are similar to, but worse than, his chronic anxiety. Denies chest pain or shortness of breath. Palpitations are now resolving. 05/31/19 19:59 - Physicial Exam PE: 05/31/19 20:00 Agree with resident exam. Patient is alert and oriented x 3 and in no acute distress. CV: rrr no m/r/g. Pulm: CTA b/l. Abdomen: soft, non tender, non distended. - Medical Decision Making 05/31/19 20:00 pt presents to the Ed complaining of palpitations and anxiety which are now resolving. Denies associated complants. EKG is normal. Pat[facility] has psychiatry follow up. Will discharge home with follow up with PCP and psychiatry.
--- NOTE | 2019-05-28 15:43 | PDOC ---
History of Present Illness - General Chief Complaint: Psychiatric Stated Complaint: anxious Time Seen by Provider: 05/28/19 15:32 Past History - Past Medical History Allergies/Adverse Reactions: Allergies Allergy/AdvReac Type Severity Reaction Status Date / Time No Known Allergies Allergy Verified 05/28/19 14:44 Home Medications: Ambulatory Orders Esomeprazole Magnesium [Nexium 24Hr] 20 mg PO DAILY #30 capsule. 10/03/17 Anemia: No Asthma: No Cancer: No Cardiac Disorders: No CVA: No COPD: No CHF: No Dementia: No Diabetes: No GI Disorders: No Disorders: No HTN: No Hypercholesterolemia: No Kidney Stones: No Liver Disease: No Psychiatric Problems: Yes (anxiety) Seizures: No Thyroid Disease: No - Surgical History Abdominal Surgery: No Appendectomy: No Cardiac Surgery: No Cholecystectomy: No Lung Surgery: No Neurologic Surgery: No Orthopedic Surgery: No - Reproductive History Testicular Surgery: No - Psycho Social/Smoking Cessation Hx Smoking Status: Yes Smoking History: Current some day smoker Have you smoked in the past 12 months: No Number of Cigarettes Smoked Daily: 0 If you are a former smoker, when did you quit?: 2014 Cigars Per Day: 0 Information on smoking cessation initiated: Yes Hx Alcohol Use: No Drug/Substance Use Hx: Yes (marijuana) Substance Use Type: Heroin (Started using heroin at age 27, consumes 3 bags 1-2 times weekly. Last used on 03/05/17), Marijuana (Started using marijuana at age 18, consumes one gram 1-2 times weekly) Hx Substance Use Treatment: Yes (one previous inpt detox @ [facility]. 3 inpt rehab @ [facility] & [facility]) *Physical Exam - Vital Signs Last Vital Signs Temp Pulse Resp BP Pulse Ox 98.4 F 73 19 172/112 H 100 05/28/19 14:43 05/28/19 14:43 05/28/19 14:43 05/28/19 14:43 05/28/19 14:43 Discharge - Discharge Information Problems reviewed: Yes Clinical Impression/Diagnosis: Anxiety Condition: Stable Disposition: HOME - Admission No - Follow up/Referral - Patient Discharge Instructions Patient Printed Discharge Instructions: DI for Anxiety -- Adult Additional Instructions: You were seen in the ER. Your EKG was normal. Please follow up with your primary care provider and your therapist as soon as possible. Please return to the ER if you develop chest pain, shortness of breath, weakness. - Post Discharge Activity
[2019-05-28 15:54] VITALS: BP 156/99; PULSE 71
--- NOTE | 2019-05-29 10:38 | EKG ---
Test Reason : Blood Pressure : / mmHG Vent. Rate : 072 BPM Atrial Rate : 072 BPM P-R Int : 156 ms QRS Dur : 088 ms QT Int : 414 ms P-R-T Axes : 013 054 038 degrees QTc Int : 453 ms NORMAL SINUS RHYTHM WHEN COMPARED WITH ECG OF 06-SEP-2017 21:23, NO SIGNIFICANT CHANGE WAS FOUND Confirmed by ROSA FLORENCE MD ([id number]) on 05/29/2019 10:38:32 AM Referred By: DR RIVERA Confirmed By:ROSA FLORENCE MD
== END 2019-05-28 15:58 | disposition home or self-care (01) ==
LOC: FER 14:42
DX: F41.9 Anxiety disorder, unspecified (principal)
CPT/HCPCS: 93005; 99282-25

== ENCOUNTER 2020-08-23 17:00 | Emergency (ER) | payer OTHER ==
[2020-08-23 17:04] VITALS: BP 159/92; PULSE 67; TEMP 97.7; BMI 32.3
[2020-08-23] MEDS ORDERED: TETRACAINE 0.5% OPHTH SOLN 2 ML BOTTLE ONE (17:13)
[2020-08-23] MEDS ORDERED: FLUORESCEIN NA 1 EA STRIP ONE (17:14)
[2020-08-23] MEDS ORDERED: TETRACAINE 0.5% HCL 0.6ML DROPPER.BOTTLE OS ONE (17:21)
[2020-08-23] MEDS ORDERED: FLUORESCEIN NA 1 EA STRIP OS ONE (17:22)
== END 2020-08-23 17:40 | disposition home or self-care (01) ==
LOC: FER 17:00
DX: S05.02XA Injury of conjunctiva and corneal abrasion without foreign body, left eye, initial encounter (principal)
CPT/HCPCS: 99283-25